=== PATIENT | female | born 1960 ===

== ENCOUNTER 2025-02-11 08:10 | Outpatient (AMB) | payer MEDICAID, SELFPAY ==
[2025-02-11 08:47] VITALS: BP 111/64; PULSE 67; RESP 18; TEMP 36.4; O2SAT 95; BMI 48.8
--- NOTE | 2025-02-11 08:47 | ORTHONT_ITS ---
Vital signs 02/11/25 08:47 Height 1.45 m Height Method Stated Weight 102.313 kg Weight Measurement Method Standing Scale BMI 48.8 BP 111/64 Blood Pressure Source Automatic Cuff Blood Pressure Location Left Upper Arm Position Sitting Respiration 18 Pulse 67 Pulse Source Monitor Temp 97.5 F Temp Source Temporal Artery Scan Pulse Oximetry (%) 95 Oxygen Delivery Method Room Air Med/Allergies Allergies & Medications Allergies codeine Allergy (Verified 02/11/25 08:49) Rash Medication Reconciliation meloxicam 7.5 mg tablet 7.5 mg PO QDAY #45 tabs 02/11/25 [Rx] Exam Exam Patient is in no acute distress and is cooperative with the examination today. Breathing is nonlabored. Patient has a normal mood and affect. Bilateral extremities were evaluated and demonstrates sensation intact to light touch. Palpable pedal pulses are present. No significant edema is present. Bilateral hips were examined. The patient has no pain with log roll of the hips. Internal rotation to 30 degrees and external rotation to 30 degrees is painless. Negative FADIR. Right knee was examined today. The right knee is in reasonable alignment. Range of motion from 0-120 degrees. Knee is stable to varus and valgus as well as AP translation with <5mm. Patient has a negative McMurrays. There is no pain with patellofemoral compression and no crepitus noted. The knee is nontender to palpation. Left knee was examined today. The left knee is in varus alignment. Range of motion from 0-115 degrees. Knee is stable to varus and valgus as well as AP tr anslation with <5mm. Patient has a negative McMurrays. There is no pain with patellofemoral compression and no crepitus noted. The knee is tender to palpation medially. X-rays are not available to review Assessment and Plan Problem List (1) Arthritis of left knee: Status: Acute Plan: Patient is a pleasant 65-year-old male with a left knee posttraumatic arthritis. We discussed nonoperative and operative options. He would need to get x-rays as we do not have them review. We discussed different treatment options depending on what it shows. She will need to lose weight as Office Procedures GNS Level of Care Nursing/Assessment Patient Status: Initial/New Patient Nursing Assessment/Reassesment: Medication Reconciliation and Update PMH in EMR Coordination of Care: Complex Care and Chronic Disease 1-5, Consent,records obtained, informed consent, 1 Ins Authorization, Lab and Imaging orders, Results/Orders obtained and Staff clarify orders New Patient Charge New Patient Point Assignment: [id number] New Patient Point Charge: CONSOLE ATTENDANT Level 3 ([id number]) MA Intake Visit Data Collection New Patient or Established: New Patient (never been to [facility]) Reason for Visit:: LEFT KNEE PAIN Seen by Clinical Staff ONLY (RN/MA): No Production Control Pegboard Clerk Required: No PCP or OBGYN visit in last 3 months: Yes Hx Now: No Do You Feel Safe at Home: Yes Authorities Contacted: N/A Questionairres Past Medical History Past Medical History Have you ever been diagnosed with any of the following: Respiratory Problems Smoking: No Smoking Cessation Counseling: No Smoking Exposure: No Subjective Visit Visit for: new patient and knee Immunization / Flu Flu Vaccine in the Last 12 Months: Yes Flu Vaccine Exclusion Criteria: Already Received History of Present Illness Chief complaint: Left knee pain Viktoriya is a pleasant 65-year-old female with a prior lateral plate from what it sounds like on the left knee 20 years ago with persistent knee pain. The knee pain is worsened in the last 2 to 3 years. She has been trying to lose weight. She has had over 5 injections and they are not working for a while anymore. She is not taking any anti-inflammatories Pain Pain level (0-10): 6 Pain duration: CONSTANT Pain location: outside (lateral) and anterior Pain quality: sharp, dull and aching Pain timing: night and increases with activity Associated signs & symptoms: weakness and stiffness Ambulatory data Ambulatory device: cane Treatments Number of previous injections: 1 Improvement with previous injections: No Improvement with PT: No Improvement with NSAIDS: no Review of Systems Review of Systems: All systems negative unless otherwise noted in HPI.
== END 2025-02-11 09:03 | disposition home or self-care (01) ==
PROVIDERS: PCP Student in an Organized Health Care Education/Training Program; Referring Provider Student in an Organized Health Care Education/Training Program; Supervising Provider Orthopaedic Surgery Adult Reconstructive Orthopaedic Surgery; Visit Provider Orthopaedic Surgery Adult Reconstructive Orthopaedic Surgery
DX: M17.12 Unilateral primary osteoarthritis, left knee (principal)
CPT/HCPCS: 99203; G0463

== ENCOUNTER 2025-03-11 08:33 | Outpatient (AMB) | payer MEDICAID, SELFPAY ==
[2025-03-11 08:49] VITALS: BP 123/82; PULSE 77; RESP 19; TEMP 36.4; O2SAT 92; BMI 48.4
--- NOTE | 2025-03-11 08:49 | ORTHONT_ITS ---
Vital signs 03/11/25 08:49 Height 1.45 m Height Method Stated Weight 101.86 kg Weight Measurement Method Standing Scale BMI 48.4 BP 123/82 Blood Pressure Source Automatic Cuff Blood Pressure Location Right Upper Arm Position Sitting Respiration 19 Pulse 77 Pulse Source Monitor Temp 97.5 F Temp Source Temporal Artery Scan Pulse Oximetry (%) 92 L Oxygen Delivery Method Room Air Med/Allergies Allergies & Medications Allergies codeine Allergy (Verified 03/11/25 08:50) Rash Medication Reconciliation meloxicam 7.5 mg tablet 7.5 mg PO QDAY #45 tabs 02/11/25 [Rx Confirmed 03/11/25] Exam Exam Patient is in no acute distress and is cooperative with the examination today. Breathing is nonlabored. Patient has a normal mood and affect. Bilateral extremities were evaluated and demonstrates sensation intact to light touch. Palpable pedal pulses are present. No significant edema is present. Bilateral hips were examined. The patient has no pain with log roll of the hips. Internal rotation to 30 degrees and external rotation to 30 degrees is painless. Negative FADIR. Right knee was examined today. The right knee is in reasonable alignment. Range of motion from 0-120 degrees. Knee is stable to varus and valgus as well as AP translation with <5mm. Patient has a negative McMurrays. There is no pain with patellofemoral compression and no crepitus noted. The knee is nontender to palpation. Left knee was examined today. The left knee is in varus alignment. Range of motion from 0-115 degrees. Knee is stable to varus and valgus as well as AP translation with <5mm. Patient has a negative McMurrays. There is no pain with patellofemoral compression and no crepitus noted. The knee is tender to palpation medially. X-rays Demonstrate severe posttraumatic arthritis on the left. There is prior hardware Including a lateral plate. She has varus deformity and varus arthritis. On the right side, she has mild arthritis. Assessment and Plan Problem List (1) Arthritis of left knee: Status: Acute Plan: Patient is a 65-year-old female with bilateral knee arthritis with significant posttraumatic arthritis on the left. Unfortunately, her BMI is 48. I discussed that she is at extremely high risk for medical complications including infection especially since we would need to remove hardware. I would recommend weight loss that she would need to get to the goal of least less than 40 for BMI which is 185 in order to undergo surgery. I discussed with her that insurance would want her to lose weight as well as to reduce the Risk of complications. Injections are no longer working for her Fortunately Office Procedures GNS Level of Care Nursing/Assessment Patient Status: Established Patient Nursing Assessment/Reassesment: Medication Reconciliation, Update PMH in EMR and Vital Signs Coordination of Care: Complex Care and Chronic Disease 1-5, Education Complex Pt/Fam, Consent,records obtained, informed consent, Lab and Imaging orders, Results/Orders obtained and Staff clarify orders Established Patient Charge Established Patient Point Assignment: 110 Established Patient Point Charge: EP Level 3 (80-115) MA Intake Visit Data Collection New Patient or Established: Established Patient (seen at [facility] within 3 years) Reason for Visit:: F/U ON XRAYS Seen by Clinical Staff ONLY (RN/MA): No Verbal consent obtained for Telemed visit?: No Chemical Recovery Operator Required: No PCP or OBGYN visit in last 3 months: Yes Hx Now: No Do You Feel Safe at Home: Yes Authorities Contacted: N/A Questionairres Past Medical History Past Medical History Have you ever been diagnosed with any of the following: Respiratory Problems Smoking: No Smoking Cessation Counseling: No Smoking Exposure: No Stomache/Intestinal Problems Obesity: Yes Subjective Visit Visit for: follow up visit, knee and x-rays Immunization / Flu Flu Vaccine in the Last 12 Months: No Flu Vaccine Exclusion Criteria: No Exclusion Criteria History of Present Illness Chief complaint: F/U XRAYS Viktoriya is a pleasant 65-year-old female with a prior lateral plate from what it sounds like on the left knee 20 years ago with persistent knee pain. The knee pain is worsened in the last 2 to 3 years. She has been trying to lose weight. She has had over 5 injections and they are not working for a while anymore. We gave her a prescription for meloxicam and is not helping very much. Her current BMI is 48.4 and she is on Ozempic Personal History Occupation: DISABLED Red flag PMH: BMI BMI Counceling provided: Yes Pain Pain level (0-10): 10 Pain duration: ALL DAY Pain location: inside (medial), outside (lateral), anterior and posterior Pain quality: sharp, dull and aching Pain timing: night, increases with activity and stairs Associated signs & symptoms: numbness, weakness and stiffness Ambulatory data Ambulatory device: cane Treatments Number of previous injections: 1 Improvement with previous injections: No Improvement with PT: No Improvement with NSAIDS: no Review of Systems Review of Systems: All systems negative unless otherwise noted in HPI.
== END 2025-03-11 09:30 | disposition home or self-care (01) ==
LOC: HODSRG 08:33
PROVIDERS: PCP Student in an Organized Health Care Education/Training Program; Referring Provider Student in an Organized Health Care Education/Training Program; Supervising Provider Orthopaedic Surgery Adult Reconstructive Orthopaedic Surgery; Visit Provider Orthopaedic Surgery Adult Reconstructive Orthopaedic Surgery
DX: M17.0 Bilateral primary osteoarthritis of knee (principal)
CPT/HCPCS: 99213; G0463